=== PATIENT | male | born 1960 | race Caucasian/White ===

== ENCOUNTER 2017-11-27 14:34 | Emergency (ER) | payer OTHER ==
[2017-11-27 15:32] LABS: Arterial Blood Carboxyhemoglob 0.9 % (0-1.5); Blood Gas Oxyhemoglobin 94.7 % (94-97)
[2017-11-27 15:51] LABS: Absolute Lymphocytes (CBC) 2.3 K/uL (0.7-4.9); Absolute Monocytes 0.7 K/uL (0.1-1.3); Absolute Neutrophil 6.2 K/uL (1.8-8.0); Basophils % 0.3 % (0-1.3); Eosinophils % 1.8 % (0-4.4); Lymphocytes % 24.6 % (15.3-44.8); MCH 27.4 pg (27.0-35.0); MCV 83.7 fL (80-100); MPV 8.5 fL (7.6-11.3); Monocytes % 7.5 % (3.3-12.3)
[2017-11-27 15:53] LABS: Potassium 3.5 mEq/L (3.6-5.0)
--- NOTE | 2017-11-27 17:07 | ER ---
Nurse's Notes [facility] Name: Esteban Avalos Age: 57 yrs Sex: Male : 1960 Arrival Date: 11/27/2017 Time: 14:35 Bed 18 Private MD: Diagnosis: Nailbed discoloration Presentation: 11/27 14:41 Presenting complaint: Patient states: " This morning I noticed that my fingertips were ph blue. I went to the doctor and they said everything looked okay, my oxygen level was okay and my lips and toenails are normal. " Elliot fingernails noted to be blue in color, pt denies SOB, Spo2 98%. Transition of care: patient was not received from another setting of care. Onset of symptoms was November 27, 2017. Care prior to arrival: None. 14:41 Method Of Arrival: Ambulatory ph 14:41 Acuity: ALVIN 3 ph Historical: - Allergies: 14:46 No Known Allergies; ph - Home Meds: 14:46 None [Active]; ph - PMHx: 14:46 Irregular heart rate; ph - PSHx: 14:46 ear; ph - Social history:: Smoking status: Patient/guardian denies using tobacco. Screenin:13 Abuse screen: Denies threats or abuse. Nutritional screening: No deficits noted. kb1 Tuberculosis screening: No symptoms or risk factors identified. Fall Risk None identified. Assessment: 15:13 General: Appears in no apparent distress. Behavior is calm, cooperative. Pain: Denies kb1 pain. Neuro: Level of Consciousness is awake, alert, obeys commands, Oriented to person, place, time, situation. Cardiovascular: Capillary refill < 3 seconds Patient's skin is warm and dry. Fingernails appear to be bluish color, denies SOA, numbness or tingling. . Respiratory: Airway is patent Respiratory effort is even, unlabored, Respiratory pattern is regular, symmetrical. GI: No signs and/or symptoms were reported involving the gastrointestinal system. : No signs and/or symptoms were reported regarding the genitourinary system. Derm: Skin is intact, is healthy with good turgor, Skin temperature is warm. Vital Signs: 14:46 BP 128 / 93; Pulse 88; Resp 18; Temp 98.0; Pulse Ox 96% on R/A; Weight 103.42 kg; ph Height 6 ft. 0 in. (182.88 cm); Pain 0/10; 14:46 Body Mass Index 30.92 (103.42 kg, 182.88 cm) ph ED Course: 14:35 Patient arrived in ED. as 14:45 Triage completed. ph 14:46 Arm band placed on. ph 14:53 Chad Cleary PA is PHCP. jr8 14:53 James Pittman MD is Attending Physician. jr8 14:54 Suzie Nina, RN is Primary Nurse. kb1 15:13 Patient has correct armband on for positive identification. Bed in low position. Call kb1 light in reach. 15:13 No provider procedures requiring assistance completed. kb1 15:36 Initial lab(s) drawn, by vt, sent to lab. 3 Administered Medications: No medications were administered Outcome: 17:06 Discharge ordered by . jr8 17:13 Discharged to home ambulatory, refused D/C vital signs kb1 17:13 Condition: stable 17:13 Discharge instructions given to patient, Instructed on discharge instructions, follow up and referral plans. Demonstrated understanding of instructions, follow-up care. 17:15 Patient left the ED. kb1 Signatures: Lisa Hanson as Chad Cleary PA PA jr8 Letty Freeman, RN RN [place] [id number] Suzie Nina, RN RN kb1
--- NOTE | 2017-11-27 17:07 | EDPHYS ---
Physician Documentation [facility] Name: Esteban Avalos Age: 57 yrs Sex: Male : 1960 Arrival Date: 11/27/2017 Time: 14:35 Bed 18 Private MD: ED Physician James Pittman HPI: 11/27 16:28 This 57 yrs old Male presents to ER via Ambulatory with complaints of Blue jr8 Fingertips. 16:28 Onset: The symptoms/episode began/occurred acutely, today. Modifying factors: The jr8 symptoms are alleviated by nothing, the symptoms are aggravated by nothing. Associated signs and symptoms: The patient has no apparent associated signs or symptoms. Severity of symptoms: At their worst the symptoms were very mild, in the emergency department the symptoms are unchanged. The patient has not experienced similar symptoms in the past. The patient has been recently seen by a physician:. Patient stated that while at his desk typing on his computer. Looked down and noticed that his nails on both of his hands appeared to be more blue. Stated that he went to PCP office who referred him to ED for further evaluation. Denies being in close proximity to chemicals. Denies food or lifestyle changes. Denies recent surgeries, shortness of breath, chest pain . Historical: - Allergies: 14:46 No Known Allergies; ph - Home Meds: 14:46 None [Active]; ph - PMHx: 14:46 Irregular heart rate; ph - PSHx: 14:46 ear; ph - Social history:: Smoking status: Patient/guardian denies using tobacco. ROS: 16:28 Eyes: Negative for injury, pain, redness, and discharge, ENT: Negative for injury, jr8 pain, and discharge, Neck: Negative for injury, pain, and swelling, Cardiovascular: Negative for chest pain, palpitations, and edema, Respiratory: Negative for shortness of breath, cough, wheezing, and pleuritic chest pain, Abdomen/GI: Negative for abdominal pain, nausea, vomiting, diarrhea, and constipation, Back: Negative for injury and pain, Skin: Negative for injury, rash, and discoloration, Neuro: Negative for headache, weakness, numbness, tingling, and seizure. 16:28 MS/extremity: Positive for bluish color to nails of hands bilaterally . Exam: 16:28 Head/Face: Normocephalic, atraumatic. Eyes: Pupils equal round and reactive to light, jr8 extra-ocular motions intact. Lids and lashes normal. Conjunctiva and sclera are non-icteric and not injected. Cornea within normal limits. Periorbital areas with no swelling, redness, or edema. ENT: Nares patent. No nasal discharge, no septal abnormalities noted. Tympanic membranes are normal and external auditory canals are clear. Oropharynx with no redness, swelling, or masses, exudates, or evidence of obstruction, uvula midline. Mucous membranes moist. Neck: Trachea midline, no thyromegaly or masses palpated, and no cervical lymphadenopathy. Supple, full range of motion without nuchal rigidity, or vertebral point tenderness. No Meningismus. Cardiovascular: Regular rate and rhythm with a normal S1 and S2. No gallops, murmurs, or rubs. Normal PMI, no JVD. No pulse deficits. Respiratory: Lungs have equal breath sounds bilaterally, clear to auscultation and percussion. No rales, rhonchi or wheezes noted. No increased work of breathing, no retractions or nasal flaring. Abdomen/GI: Soft, non-tender, with normal bowel sounds. No distension or tympany. No guarding or rebound. No evidence of tenderness throughout. Back: No spinal tenderness. No costovertebral tenderness. Full range of motion. Skin: Warm, dry with normal turgor. Normal color with no rashes, no lesions, and no evidence of cellulitis. Neuro: Awake and alert, GCS 15, oriented to person, place, time, and situation. Cranial nerves II-XII grossly intact. Motor strength 5/5 in all extremities. Sensory grossly intact. Cerebellar exam normal. Normal gait. 16:28 Musculoskeletal/extremity: ROM: intact in all extremities, Circulation is intact in all extremities. Pulses: noted to be 3+ in the right radial artery, right brachial artery, left radial artery and left brachial artery, Perfusion: the patient is normally perfused throughout, pink, warm, noted to have brisk capillary refill, Perfusion: the extremity is normally perfused throughout, pink, warm, with brisk capillary refill, Sensation intact. Nails: Mild dusky/blue like streaks noted to nails on both hands, No petechia noted or any other skin lesion . Vital Signs: 14:46 BP 128 / 93; Pulse 88; Resp 18; Temp 98.0; Pulse Ox 96% on R/A; Weight 103.42 kg; ph Height 6 ft. 0 in. (182.88 cm); Pain 0/10; 14:46 Body Mass Index 30.92 (103.42 kg, 182.88 cm) ph MDM: 14:53 Patient medically screened. jr8 17:05 Data reviewed: vital signs, nurses notes, lab test result(s), and as a result, I will jr8 discharge patient. Data interpreted: Pulse oximetry: on room air is 96 %. Interpretation: normal. Counseling: I had a detailed discussion with the patient and/or guardian regarding: the historical points, exam findings, and any diagnostic results supporting the discharge/admit diagnosis, the need for outpatient follow up, a family practitioner, to return to the emergency department if symptoms worsen or persist or if there are any questions or concerns that arise at home. 11/27 15:15 Order name: CBC with Diff; Complete Time: 15:57 8 11/27 15:15 Order name: Basic Metabolic Panel; Complete Time: 15:57 jr8 11/27 15:15 Order name: ABG; Complete Time: 15:40 jr8 Administered Medications: No medications were administered Disposition: 11/27/17 17:06 Discharged to Home. Impression: Nailbed discoloration . - Condition is Stable. - Work release form, Medication Reconciliation Form, Thank You Letter, Antibiotic Education, Prescription Opioid Use form. - Follow up: Private Physician; When: 2 - 3 days; Reason: Recheck today's complaints, Continuance of care, Re-evaluation by your physician. - Problem is new. - Symptoms have improved. Addendum: 11/29/2017 07:35 Co-signature as Attending Physician, James Pittman MD I agree with the assessment and w a plan of care. Signatures: Dispatcher [employer] EDMS Chad Cleary PA PA jr8 Letty Freeman RN RN ph Appiah, William, MD MD wa Brown, Kristina RN RN kb1 Corrections: (The following items were deleted from the chart) 11/27 15:40 15:38 Blood Culture ordered. EDMS EDMS
== END 2017-11-27 17:15 | disposition home or self-care (01) ==
LOC: ER 14:34
DX: L60.8 Other nail disorders (principal)
CPT/HCPCS: 36415; 80048; 82805; 85025; 99283